=== PATIENT | female | born 1995 | race African-American/Black ===

== ENCOUNTER 2017-01-03 16:05 | Emergency (ER) | payer BC, OTHER ==
[~2017-01-03] VITALS: Ht 160 cm; Wt 56.5 kg
[2017-01-03 16:07] VITALS: Ht 160 cm; Wt 56.5 kg
[2017-01-03] MEDS ORDERED: ONDANSETRON 4 MG INJ IV STA (17:05)
[2017-01-03] MEDS ORDERED: SOD CHLORIDE 0.9% 1,000 ML IV STA (17:05)
--- NOTE | 2017-01-03 18:03 | RADRPT ---
PROCEDURE: XR Chest. CLINICAL INDICATION: Shortness of breath TECHNIQUE: Single frontal view of the chest was obtained COMPARISON: None FINDINGS: The cardiomediastinal silhouette is within normal limits. There is diffuse mild relative lucency of the left lung as compared to the right lung. This may be technical in etiology. However, the possibility of left-sided air trapping is not excluded. The tra carmen is essentially midline and there are is no associated mediastinal shift. No pneumothorax, significant pleural effusion, or parenchymal consolidation is identified. There is no evidence of significant pulmonary vascular congestion. There are degenerative changes of the visualized spine. IMPRESSION: Diffuse mild relative lucency of the left lung as compared to the right lung. While this may be cristhian hnical in etiology, the possibility of left-sided air trapping is not excluded. Repeat chest x-ray w ith inspiratory and expiratory views may help clarify. RPTAT: PP Physician Rl Date Time Electronically viewed and signed by Physician Rl on 01/03/2017 18:02 JONO/
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
[2017-01-03] MEDS ORDERED: KETOROLAC 30 MG INJ IV STA (18:12)
[2017-01-03] MEDS ORDERED: IBUP-1542 PO (18:13)
[2017-01-03] MEDS ORDERED: CYCL-319 PO (18:13)
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
[2017-01-03] MEDS ORDERED: LORAZEPAM 2 MG INJ IV ONE (18:30)
[2017-01-03 18:38] LABS: BASOPHIL # 0.1 10^3/ul (0.0-0.1); EOSINOPHILS # 0.1 10^3/ul (0.0-0.5); HEMATOCRIT 43.4 % (37.0-47.0); HEMOGLOBIN 14.6 g/dl (12.0-16.0); LYMPHOCYTES # 1.8 10^3/ul (0.8-2.9); LYMPHOCYTES % 36.6 % (15.0-51.0); MEAN CORPUSCULAR HEMOGLOBIN 27.8 pg (29.0-33.0); MEAN CORPUSCULAR HGB CONC 33.6 g/dl (32.0-37.0); MEAN CORPUSCULAR VOLUME 82.5 fl (82.0-101.0); MEAN PLATELET VOLUME 10.4 fl (7.4-10.4); MONOCYTE # 0.7 10^3/ul (0.3-0.9); MONOCYTES % 14.1 % (0.0-11.0); NEUTROPHIL # 2.3 10^3/ul (1.6-7.5); NEUTROPHILS % 47.1 % (39.0-77.0); PLATELET COUNT 342 10^3/UL (140-415); RED BLOOD COUNT 5.26 10^6/ul (4.20-5.40); RED CELL DISTRIBUTION WIDTH 14.1 % (11.5-14.5); WHITE BLOOD COUNT 4.9 10^3/ul (4.8-10.8)
[2017-01-03 18:54] LABS: D-DIMER 488.56 ng/ml (<460)
[2017-01-03 19:04] LABS: CALCIUM 9.8 mg/dl (8.4-10.2); CREATININE 0.95 mg/dl (0.44-1.00); POTASSIUM 4.1 mmol/L (3.5-5.1)
[2017-01-03] MEDS ORDERED: SOD CHLORIDE 0.9% 100 ML ONE (19:35)
[2017-01-03] MEDS ORDERED: IOHEXOL 100 ML ONE (19:35)
--- NOTE | 2017-01-03 20:16 | RADRPT ---
PROCEDURE: CTA Chest. CLINICAL INDICATION: Tachycardia. TECHNIQUE: Multiple contiguous axial CT images of the chest were obtained following the administra tion of 100 cc of Omnipaque 350 intravenous contrast. High-resolution thin slice coronal and sagitt al reformats were obtained from the axial source images. 3-D volumetric rendered post processing wa s also performed. CTDIvol(mGy): 7.04, 35.21, 4.01; Total Exam DLP (mGy-cm): 153.65. One or more of the following dose reduction techniques were utilized: - Automated exposure control. - Adjustment of the mA and/or kV according to patient size. - Use of iterative reconstruction technique. COMPARISON: Chest x-ray 01/03/2017. FINDINGS: Limited imaging of the lower neck is unremarkable. The heart is not enlarged. There is no pericardial effusion. There is no mediastinal, hilar or axi llary lymphadenopathy. The thoracic aorta is normal in caliber. The pulmonary arteries are not enl arged. There are no central filling defects to suggest the presence of acute pulmonary embolism. There is no pulmonary consolidation, pleural effusion or pulmonary nodule. The tracheobronchial carolyn e is normal in caliber. There is no pneumothorax or pneumomediastinum. Limited imaging of the upper abdomen is unremarkable. 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 The remainder of the spine is unremarkable. The bony thorax is unrema rkable. Chest wall soft tissues are unremarkable. IMPRESSION: No evidence of acute pulmonary embolism or focal acute pulmonary pathology. RPTAT: HLST .Elyssa Martinez MD, MD Date Time Electronically viewed and signed by .Elyssa Martinez MD, MD on 01/03/2017 20:16 .T/
== END 2017-01-03 20:47 | disposition home or self-care (01) ==
LOC: FTE 16:05
DX: M54.6 Pain in thoracic spine (principal)
CPT/HCPCS: 71010; 71275; 72072; 80048; 85025; 85378; 93005; 96374; 96375; 99285; J1885; J2060; J2405; J7030; Q9967; Z7610